=== PATIENT | female | born 1995 | race African-American/Black ===

== ENCOUNTER 2023-09-03 09:02 | Emergency (ER) | payer OTHER ==
[~2023-09-03] VITALS: Ht 167.6 cm; Wt 69.0 kg
[2023-09-03 09:12] VITALS: BP 137/87; PULSE 98; RESP 18; TEMP 98.2; O2SAT 100
[2023-09-03 10:23] LABS: BASOPHILS % 0.8 % (0.0-2.0); EOSINOPHILS % 0.1 % (0.0-5.0); HEMATOCRIT. 37.7 % (36.0-48.0); HEMOGLOBIN. 12.6 g/dL (12.0-16.0); LYMPHOCYTES % 18.3 % (20.0-50.0); MEAN CORPUSCULAR HEMOGLOBIN 29.8 pg (28.0-32.0); MEAN CORPUSCULAR HGB CONC 33.5 g/dL (31.0-37.0); MEAN PLATELET VOLUME 8.5 fl (7.4-10.4); MONOCYTES % 4.3 % (2.0-8.0); NEUTROPHILS % 76.5 % (40.0-76.0); PLATELET 289 x1000/uL (130-400); RED BLOOD CELL COUNT 4.23 mill/uL (4.2-5.4); RED CELL DISTRIBUTION WIDTH 14.7 % (11.6-14.6); WHITE BLOOD COUNT 8.4 x1000/uL (4.5-11.0)
[2023-09-03 10:34] LABS: CHLORIDE 105 mEq/L (98-107); INDEX HEMOLYSI 1 (1-3); INDEX ICTERIC 1 (1-4); INDEX LIPEMIC 1 (1-3); POTASSIUM 3.6 mEq/L (3.5-5.1); SODIUM 135 mEq/L (136-145)
[2023-09-03 10:36] LABS: CALCIUM 8.5 mg/dL (8.5-10.1)
[2023-09-03 11:34] LABS: CARBON DIOXIDE 20 mEq/L (21-32); CREATININE 0.8 mg/dL (0.6-1.3); GLUCOSE 75 mg/dL (70-105); UREA NITROGEN BLOOD 9 mg/dL (7-21)
[2023-09-03 11:39] LABS: CLARITY URINE TURBID (CLEAR); COLOR URINE DARK YELLOW (YELLOW); GLUCOSE URINE NEGATIVE (NEGATIVE); KETONES URINE 2+ (NEGATIVE); LEUKOCYTE ESTERASE URINE 2+ (NEGATIVE); NITRITE URINE NEGATIVE (NEGATIVE); OCCULT BLOOD URINE 3+ (NEGATIVE); PROTEIN URINE 1+ (NEGATIVE); SPECIFIC GRAVITY URINE 1.026 (1.005-1.030)
[2023-09-03 12:33] LABS: SQUAMOUS EPITHELIAL CELL URINE 2+ /lpf (RARE/1+)
[2023-09-03 12:34] LABS: RBC URINE 0-2 /hpf (0-2)
[2023-09-03 12:35] LABS: BACTERIA URINE 3+
== END 2023-09-03 12:32 | disposition left against medical advice (07) ==
LOC: ER 09:57
DX: O23.12 Infections of bladder in pregnancy, second trimester (principal); Z3A.15 15 weeks gestation of pregnancy; O20.0 Threatened abortion
CPT/HCPCS: 36415; 80048; 81003; 84702; 85025; 86850; 86900; 99283

== ENCOUNTER 2025-03-10 18:49 | Emergency (ER) | payer OTHER ==
[~2025-03-10] VITALS: Ht 162.6 cm; Wt 70.0 kg
[2025-03-10 18:56] VITALS: O2SAT 98
[2025-03-10 19:13] VITALS: BP 154/88; PULSE 104; RESP 20; TEMP 37.1; O2SAT 99
== END 2025-03-11 00:30 | disposition left against medical advice (07) ==
LOC: ER 18:49
DX: R09.81 Nasal congestion (principal); Z98.890 Other specified postprocedural states; Z53.21 Procedure and treatment not carried out due to patient leaving prior to being seen by health care provider